=== PATIENT | male | born 1970 | race Two or more races ===

== ENCOUNTER 2018-10-27 21:17 | Emergency (ER) | payer OTHER ==
[~2018-10-27] VITALS: Ht 170.2 cm; Wt 75.3 kg
--- NOTE | 2018-10-27 21:30 | NUR ---
PALPITATIONS AND CHEST PRESSURE SINCE 2099 TODAY. PT AAO X4, AMB WITH STEADY GAIT. MILD SOB. MED AT BEDSIDE FOR EVAL.
[2018-10-27 21:47] LABS: BASOPHILS % (AUTO) 0.3 % (0.0-2.0); EOSINOPHILS % (AUTO) 0.9 % (0.0-6.0); HEMATOCRIT 46 % (39-51); HEMOGLOBIN 15.9 g/dL (13.5-17.5); LYMPHOCYTES % (AUTO) 31.9 % (20.0-44.0); MEAN CORPUSCULAR HGB CONC 35 g/dl (31.0-36.0); MEAN CORPUSCULAR VOLUME 92 fL (80-96); MONOCYTES % (AUTO) 10.5 % (2.0-12.0); NEUTROPHILS # (AUTO) 5.3 /CMM (1.8-8.9); NEUTROPHILS % (AUTO) 56.4 % (43.0-81.0); PLATELET COUNT (AUTO) 370 /CMM (150-450); RED BLOOD CELL COUNT(AUTO) 4.98 MIL/uL (4.5-6.0); WHITE BLOOD COUNT (AUTO) 9.4 K/uL (4.3-11.0)
[2018-10-27 21:53] LABS: CARBON DIOXIDE 24 mmol/L (21-32); CHLORIDE 103 mmol/L (98-107); CREATININE 1.1 mg/dL (0.6-1.3); GLUCOSE 129 mg/dL (74-106); POTASSIUM 3.5 mmol/L (3.5-5.1); SODIUM SERUM 139 mmol/L (136-145); UREA NITROGEN, BLOOD 16 mg/dL (7-18)
[2018-10-27] MEDS ORDERED: AMIODARONE 150 MG/3 ML VIAL IV ONE ×2 (21:58→22:00)
[2018-10-27] MEDS ORDERED: PROCAINAMIDE HCL 500 MG/ML VIAL IVP ONE (22:00)
--- NOTE | 2018-10-27 22:05 | NUR ---
PLACED PT ON MONITOR, HR <200, STARTED AMIODARONE 150MG IVP AT THIS TIME, CONT TO MONITOR
--- NOTE | 2018-10-27 22:30 | NUR ---
PT HR >90 AT THIS TIME, DR JONES AND DR WALDRON AWARE. PT CAN BE DC'D ONCE IVF FINISHED.
[2018-10-27 23:10] VITALS: BP 125/83
--- NOTE | 2018-10-27 23:34 | NUR ---
Patient discharged to home in stable condition. Written and verbal after care instructions given. Patient verbalizes understanding of instruction. IV removed. Catheter intact and site benign. Pressure and 4x4 applied to site. No bleeding noted.
== END 2018-10-27 23:56 | disposition home or self-care (01) ==
LOC: ER 21:17
DX: I47.1 Supraventricular tachycardia (principal)
CPT/HCPCS: 36415; 71045; 80048; 84484; 85025; 93005 ×3; 96374; 99291; J0282; J2690; J7030